=== PATIENT | male | born 1955 | race Caucasian/White ===

== ENCOUNTER 2018-01-03 08:06 | Day surgery (SDC) | payer OTHER ==
[2018-01-03] MEDS ORDERED: PROPOFOL 60 ML (09:05)
[2018-01-03] MEDS ORDERED: LIDOCAINE 2% (SDV) 5 ML INJ (09:05)
== END 2018-01-03 16:55 | disposition home or self-care (01) ==
LOC: GIL 08:06
DX: Z12.11 Encounter for screening for malignant neoplasm of colon (principal); D12.5 Benign neoplasm of sigmoid colon; K29.60 Other gastritis without bleeding; K44.9 Diaphragmatic hernia without obstruction or gangrene; K21.0 Gastro-esophageal reflux disease with esophagitis; K64.8 Other hemorrhoids; K64.4 Residual hemorrhoidal skin tags
CPT/HCPCS: 43239; 88305